=== PATIENT | female | born 1955 | race Caucasian/White ===

== ENCOUNTER → 2020-02-25 | Day surgery (SDC) | payer BC, OTHER ==
[~2020-02-25] VITALS: Ht 157.5 cm; Wt 96.6 kg
[~2020-02-25] MED LIST: B12 PO; BACTRIM DS TAB1 EACH PO; CELEXA20 MG PO; CLARITIN10 M2 PO; DOCUSATE SODIU100 MG PO; FAMOTIDINE20 MG PO; GLUCOPHAGE500 MG PO; HYDROCODON-ACE1 EAC4 PO; KRILL OIL 3001 EACH PO; LEVOTHYROXINE100 MC2 PO; LOPRESSOR 25 MG25 MG PO; MEGARED JOINT353 MG PO; MELATONIN10 M2 PO; METHOCARBAMOL500 MG PO; NEURONTIN300 MG PO; ROBAXIN-750750 MG PO; STOOL SOFTENER1 EACH PO; TOPROL XL25 MG PO; VITAMIN D325 MCG PO; VITAMIN D350 MC3 PO; ZETIA10 MG PO; ZOCOR20 MG PO
== END | disposition home or self-care (01) ==
LOC: OR 06:59
DX: T82.514A Breakdown (mechanical) of infusion catheter, initial encounter (principal); C20 Malignant neoplasm of rectum; E11.9 Type 2 diabetes mellitus without complications; E03.9 Hypothyroidism, unspecified; I10 Essential (primary) hypertension; J45.909 Unspecified asthma, uncomplicated; E78.5 Hyperlipidemia, unspecified; Z20.822 Contact with and (suspected) exposure to COVID-19; Z95.1 Presence of aortocoronary bypass graft; Z98.890 Other specified postprocedural states; Z79.84 Long term (current) use of oral hypoglycemic drugs; Z79.899 Other long term (current) drug therapy
CPT/HCPCS: 71045; 82962; C1769; C1788; J0690; J1642; J2001; J2405; J2704; J2765; J3010; J7030; J7040; J7120

== ENCOUNTER → 2020-05-26 | Outpatient (CLI) | payer BC, OTHER | LOC: MRI 09:15 | DX: C20 Malignant neoplasm of rectum (principal); C77.2 Secondary and unspecified malignant neoplasm of intra-abdominal lymph nodes; Z87.891 Personal history of nicotine dependence | CPT/HCPCS: 72197; A9577 ==

== ENCOUNTER → 2020-09-15 | Outpatient (CLI) | payer BC, OTHER ==
[~2020-09-15] MED LIST changes: -B12 PO; +CAPECITABINE150 MG PO; +CAPECITABINE500 MG PO; +ENOXAPARIN40 MG/0.4 SC; +HUMALOG 10100 UNITS/ SC; +JANUVIA100 MG PO; +LANTUS INS100 UTS/M1 SQ; -LEVOTHYROXINE100 MC2 PO; +LISINOPRIL10 MG PO; +PROTONIX 40 MG40 MG PO; +SYNTHROID125 MCG PO; +VANCOCIN 125MG/2.5ML PO; +VITAMIN B-122500 MCG SL
== END ==
LOC: CT 08:30
DX: C20 Malignant neoplasm of rectum (principal); C77.2 Secondary and unspecified malignant neoplasm of intra-abdominal lymph nodes; Z87.891 Personal history of nicotine dependence; K76.0 Fatty (change of) liver, not elsewhere classified; K63.89 Other specified diseases of intestine; K62.89 Other specified diseases of anus and rectum; R16.1 Splenomegaly, not elsewhere classified
CPT/HCPCS: Q9967

== ENCOUNTER 2020-10-18 19:13 | Inpatient (IN) | payer BC, OTHER ==
[~2020-10-18] VITALS: Ht 162.6 cm; Wt 86.2 kg
[~2020-10-18 19:13] MED LIST changes: -CAPECITABINE500 MG PO; -ENOXAPARIN40 MG/0.4 SC; -HUMALOG 10100 UNITS/ SC; -JANUVIA100 MG PO; -LANTUS INS100 UTS/M1 SQ; -LISINOPRIL10 MG PO; -PROTONIX 40 MG40 MG PO; -SYNTHROID125 MCG PO; -VANCOCIN 125MG/2.5ML PO; -VITAMIN B-122500 MCG SL
[2020-10-18 20:32] LABS: HEMOGLOBIN 11.4 gm/dl (12.3-15.3); RED BLOOD COUNT 3.4 M/UL (4.00-5.10); WHITE BLOOD COUNT 2.4 K/UL (4.5-11.0)
[2020-10-19 05:22] LABS: HEMOGLOBIN 10.7 gm/dl (12.3-15.3); RED BLOOD COUNT 3.23 M/UL (4.00-5.10)
[2020-10-19 05:55] LABS: BUN/CREATININE RATIO 15 (0-10)
[2020-10-19] MEDS ORDERED: SYNTHROID125 MCG PO (07:05)
[2020-10-19] MEDS ORDERED: VITAMIN B-122500 MCG SL (08:24)
[2020-10-19] MEDS ORDERED: CAPECITABINE500 MG PO (20:04)
[2020-10-19] MEDS ORDERED: JANUVIA100 MG PO (20:06)
[2020-10-19] MEDS ORDERED: LISINOPRIL10 MG PO (20:40)
[2020-10-20 05:23] LABS: HEMOGLOBIN 10.1 gm/dl (12.3-15.3); RED BLOOD COUNT 3.2 M/UL (4.00-5.10); WHITE BLOOD COUNT 1.6 K/UL (4.5-11.0)
[2020-10-20 05:44] LABS: BUN/CREATININE RATIO 27 (0-10)
[2020-10-21 05:01] LABS: HEMOGLOBIN 11.2 gm/dl (12.3-15.3)
[2020-10-21 05:20] LABS: RED BLOOD COUNT 3.55 M/UL (4.00-5.10); WHITE BLOOD COUNT 3.8 K/UL (4.5-11.0)
[2020-10-21 05:29] LABS: BUN/CREATININE RATIO 38 (0-10)
[2020-10-22 05:23] LABS: HEMOGLOBIN 11.2 gm/dl (12.3-15.3); RED BLOOD COUNT 3.52 M/UL (4.00-5.10); WHITE BLOOD COUNT 4.2 K/UL (4.5-11.0)
[2020-10-22 05:42] LABS: BUN/CREATININE RATIO 42 (0-10)
[2020-10-23 04:26] LABS: HEMOGLOBIN 11.1 gm/dl (12.3-15.3); RED BLOOD COUNT 3.45 M/UL (4.00-5.10); WHITE BLOOD COUNT 4.2 K/UL (4.5-11.0)
[2020-10-23 04:49] LABS: BUN/CREATININE RATIO 51 (0-10)
[2020-10-24 04:57] LABS: HEMOGLOBIN 11.6 gm/dl (12.3-15.3); RED BLOOD COUNT 3.58 M/UL (4.00-5.10)
[2020-10-24 05:02] LABS: WHITE BLOOD COUNT 5.3 K/UL (4.5-11.0)
[2020-10-24 05:40] LABS: BUN/CREATININE RATIO 61 (0-10)
[2020-10-25 05:11] LABS: HEMOGLOBIN 11.2 gm/dl (12.3-15.3); RED BLOOD COUNT 3.47 M/UL (4.00-5.10); WHITE BLOOD COUNT 6.1 K/UL (4.5-11.0)
[2020-10-25 05:53] LABS: BUN/CREATININE RATIO 60 (0-10)
[2020-10-26 05:39] LABS: HEMOGLOBIN 11.2 gm/dl (12.3-15.3); RED BLOOD COUNT 3.49 M/UL (4.00-5.10); WHITE BLOOD COUNT 5.2 K/UL (4.5-11.0)
[2020-10-26 06:06] LABS: BUN/CREATININE RATIO 68 (0-10)
[2020-10-27 04:57] LABS: BUN/CREATININE RATIO 74 (0-10)
[2020-10-27 05:15] LABS: RED BLOOD COUNT 3.36 M/UL (4.00-5.10); WHITE BLOOD COUNT 5.3 K/UL (4.5-11.0)
[2020-10-28 05:10] LABS: RED BLOOD COUNT 3.37 M/UL (4.00-5.10); WHITE BLOOD COUNT 6.2 K/UL (4.5-11.0)
[2020-10-28 05:29] LABS: BUN/CREATININE RATIO 58 (0-10)
[2020-10-31 09:00] LABS: BUN/CREATININE RATIO 38 (0-10)
[2020-10-31 10:02] LABS: HEMOGLOBIN 10.7 gm/dl (12.3-15.3); RED BLOOD COUNT 3.32 M/UL (4.00-5.10); WHITE BLOOD COUNT 6.6 K/UL (4.5-11.0)
[2020-11-01 05:33] LABS: HEMOGLOBIN 9.9 gm/dl (12.3-15.3); RED BLOOD COUNT 3.09 M/UL (4.00-5.10); WHITE BLOOD COUNT 6.6 K/UL (4.5-11.0)
[2020-11-01 05:55] LABS: BUN/CREATININE RATIO 32 (0-10)
[2020-11-02 05:09] LABS: HEMOGLOBIN 10.9 gm/dl (12.3-15.3)
[2020-11-02 05:12] LABS: RED BLOOD COUNT 3.64 M/UL (4.00-5.10); WHITE BLOOD COUNT 11.1 K/UL (4.5-11.0)
[2020-11-02 05:43] LABS: BUN/CREATININE RATIO 36 (0-10)
[2020-11-03 05:02] LABS: HEMOGLOBIN 11.3 gm/dl (12.3-15.3); RED BLOOD COUNT 3.5 M/UL (4.00-5.10)
[2020-11-03 05:06] LABS: WHITE BLOOD COUNT 6.7 K/UL (4.5-11.0)
[2020-11-03 05:26] LABS: BUN/CREATININE RATIO 25 (0-10)
[2020-11-04 05:42] LABS: HEMOGLOBIN 11.5 gm/dl (12.3-15.3); RED BLOOD COUNT 3.56 M/UL (4.00-5.10); WHITE BLOOD COUNT 4.7 K/UL (4.5-11.0)
[2020-11-04 06:06] LABS: BUN/CREATININE RATIO 37 (0-10)
[2020-11-05 04:16] LABS: RED BLOOD COUNT 3.33 M/UL (4.00-5.10); WHITE BLOOD COUNT 4.5 K/UL (4.5-11.0)
[2020-11-05 04:31] LABS: BUN/CREATININE RATIO 39 (0-10)
[2020-11-06 04:44] LABS: HEMOGLOBIN 10.9 gm/dl (12.3-15.3); RED BLOOD COUNT 3.33 M/UL (4.00-5.10)
[2020-11-06 04:48] LABS: WHITE BLOOD COUNT 5.8 K/UL (4.5-11.0)
[2020-11-06 05:11] LABS: BUN/CREATININE RATIO 29 (0-10)
[2020-11-07 08:14] LABS: HEMOGLOBIN 10.9 gm/dl (12.3-15.3); RED BLOOD COUNT 3.36 M/UL (4.00-5.10); WHITE BLOOD COUNT 4.9 K/UL (4.5-11.0)
[2020-11-07 08:50] LABS: BUN/CREATININE RATIO 35 (0-10)
[2020-11-08 09:47] LABS: HEMOGLOBIN 11.6 gm/dl (12.3-15.3); RED BLOOD COUNT 3.57 M/UL (4.00-5.10); WHITE BLOOD COUNT 5.8 K/UL (4.5-11.0)
[2020-11-08 10:03] LABS: BUN/CREATININE RATIO 32 (0-10)
[2020-11-09 05:30] LABS: HEMOGLOBIN 11.3 gm/dl (12.3-15.3); RED BLOOD COUNT 3.64 M/UL (4.00-5.10); WHITE BLOOD COUNT 5.3 K/UL (4.5-11.0)
[2020-11-09 05:48] LABS: BUN/CREATININE RATIO 28 (0-10)
[2020-11-10 08:59] LABS: HEMOGLOBIN 11.8 gm/dl (12.3-15.3); RED BLOOD COUNT 3.67 M/UL (4.00-5.10); WHITE BLOOD COUNT 5.8 K/UL (4.5-11.0)
[2020-11-10 09:24] LABS: BUN/CREATININE RATIO 28 (0-10)
[2020-11-11 11:49] LABS: BUN/CREATININE RATIO 32 (0-10)
[2020-11-13 09:52] LABS: HEMOGLOBIN 11.7 gm/dl (12.3-15.3); RED BLOOD COUNT 3.61 M/UL (4.00-5.10); WHITE BLOOD COUNT 5.2 K/UL (4.5-11.0)
[2020-11-13 10:09] LABS: BUN/CREATININE RATIO 32 (0-10)
[2020-11-14 10:35] LABS: HEMOGLOBIN 11.9 gm/dl (12.3-15.3); RED BLOOD COUNT 3.71 M/UL (4.00-5.10); WHITE BLOOD COUNT 6.2 K/UL (4.5-11.0)
[2020-11-15 07:38] LABS: HEMOGLOBIN 11.2 gm/dl (12.3-15.3); RED BLOOD COUNT 3.57 M/UL (4.00-5.10); WHITE BLOOD COUNT 5.8 K/UL (4.5-11.0)
[2020-11-15 08:02] LABS: BUN/CREATININE RATIO 40 (0-10)
[2020-11-16 05:40] LABS: HEMOGLOBIN 11.1 gm/dl (12.3-15.3); RED BLOOD COUNT 3.45 M/UL (4.00-5.10); WHITE BLOOD COUNT 5.5 K/UL (4.5-11.0)
[2020-11-16 06:08] LABS: BUN/CREATININE RATIO 57 (0-10)
[2020-11-16] MEDS ORDERED: PROTONIX 40 MG40 MG PO (06:52)
[2020-11-16] MEDS ORDERED: VANCOCIN 125MG/2.5ML PO (06:52)
[2020-11-16] MEDS ORDERED: ENOXAPARIN40 MG/0.4 SC (06:52)
[2020-11-16] MEDS ORDERED: HUMALOG 10100 UNITS/ SC ×2 (06:52)
[2020-11-16] MEDS ORDERED: LANTUS INS100 UTS/M1 SQ (06:52)
--- NOTE | 2020-11-16 11:05 | NUR ---
son, tarik refused flu shot for pt at discharge. states that she never takes flu shot.
== END 2020-11-16 13:00 | DRG 4 ==
LOC: ER1 19:13 → CCU 23:50 → CDU 23:50 → CCU 10-19 14:18
PROVIDERS: Internal Medicine; Internal Medicine Pulmonary Disease; Student in an Organized Health Care Education/Training Program; Surgery; ADMIT Internal Medicine
PROC: 5A1955Z Respiratory Ventilation, Greater than 96 Consecutive Hours (ICD-10-PCS; principal; 2020-10-18)
PROC: 0BH18EZ Insertion of Endotracheal Airway into Trachea, Via Natural or Artificial Opening Endoscopic (ICD-10-PCS; 2020-10-18)
PROC: XW033E5 Introduction of Remdesivir Anti-infective into Peripheral Vein, Percutaneous Approach, New Technology Group 5 (ICD-10-PCS; 2020-10-18)
PROC: 3E0333Z Introduction of Anti-inflammatory into Peripheral Vein, Percutaneous Approach (ICD-10-PCS; 2020-10-18)
PROC: 0DH67UZ Insertion of Feeding Device into Stomach, Via Natural or Artificial Opening (ICD-10-PCS; 2020-10-19)
PROC: B24BZZZ Ultrasonography of Heart with Aorta (ICD-10-PCS; 2020-10-19)
PROC: 05HM33Z Insertion of Infusion Device into Right Internal Jugular Vein, Percutaneous Approach (ICD-10-PCS; 2020-10-19)
PROC: B543ZZA Ultrasonography of Right Jugular Veins, Guidance (ICD-10-PCS; 2020-10-19)
PROC: 0B113F4 Bypass Trachea to Cutaneous with Tracheostomy Device, Percutaneous Approach (ICD-10-PCS; 2020-11-02)
PROC: 0DH63UZ Insertion of Feeding Device into Stomach, Percutaneous Approach (ICD-10-PCS; 2020-11-02)
DX: A41.89 Other specified sepsis (principal); U07.1 COVID-19; J12.82 Pneumonia due to coronavirus disease 2019; J80 Acute respiratory distress syndrome; J18.1 Lobar pneumonia, unspecified organism; J15.9 Unspecified bacterial pneumonia; R65.21 Severe sepsis with septic shock; G93.41 Metabolic encephalopathy; A04.72 Enterocolitis due to Clostridium difficile, not specified as recurrent; E87.2 Acidosis; D61.818 Other pancytopenia; Z66 Do not resuscitate; I10 Essential (primary) hypertension; E11.9 Type 2 diabetes mellitus without complications; E03.9 Hypothyroidism, unspecified; I25.10 Atherosclerotic heart disease of native coronary artery without angina pectoris; R53.81 Other malaise; E78.5 Hyperlipidemia, unspecified; L89.152 Pressure ulcer of sacral region, stage 2; D72.819 Decreased white blood cell count, unspecified; D53.1 Other megaloblastic anemias, not elsewhere classified; E87.5 Hyperkalemia; E66.01 Morbid (severe) obesity due to excess calories; F32.9 Major depressive disorder, single episode, unspecified; F41.9 Anxiety disorder, unspecified; Z85.048 Personal history of other malignant neoplasm of rectum, rectosigmoid junction, and anus; Z87.891 Personal history of nicotine dependence; Z98.890 Other specified postprocedural states
CPT/HCPCS: ECHO; 31500; 36415; 36600; 70450; 71045; 80048; 80053; 80202; 82728; 82803; 82962; 83605; 83735; 83880; 84100; 84439; 84443; 84478; 85007; 85025; 85027; 85379; 86140; 87040; 87070; 87205; 87324; 87449; 93005; 93306; 94002; 94003; 94640; 94660; 94760; 96374; 96375; 99285; A6212; C1769; J0360; J0456; J0461; J0696; J1100; J1265; J1450; J1650; J1940; J2185; J2250; J2270; J2370; J2405; J2704; J3010; J3370; J7030; J7040; J7050; J7070; J7120; U0002

== ENCOUNTER → 2021-01-10 | Day surgery (SDC) | payer BC, OTHER ==
[~2021-01-10] MED LIST changes: +CAPECITABINE500 MG PO; +ENOXAPARIN40 MG/0.4 SC; +HUMALOG 10100 UNITS/ SC; +JANUVIA100 MG PO; +LANTUS INS100 UTS/M1 SQ; +LISINOPRIL10 MG PO; +PROTONIX 40 MG40 MG PO; +SYNTHROID125 MCG PO; +VANCOCIN 125MG/2.5ML PO; +VITAMIN B-122500 MCG SL
== END | disposition home or self-care (01) ==
LOC: RAD 11:30
DX: M54.50 Low back pain, unspecified (principal); M25.551 Pain in right hip; M47.898 Other spondylosis, sacral and sacrococcygeal region; M47.816 Spondylosis without myelopathy or radiculopathy, lumbar region
CPT/HCPCS: 72110; 73502